=== PATIENT | male | born 2000 | race Caucasian/White ===

== ENCOUNTER 2021-04-29 23:22 | Emergency (ER) | payer OTHER ==
[2021-04-30] MEDS ORDERED: oxyCODONE/ACET 5/325 Prepack 4 PO STA (00:15)
--- NOTE | 2021-04-30 00:19 | ED Physician Documentation ---
PD HPI SKIN - Stated complaint Stated Complaint: PX/+SHINGLES - Chief complaint Chief Complaint: Wound - History obtained from History obtained from: Patient - History of Present Illness Timing - onset: How many days ago (2-3) Timing - details: Gradual onset Pain level now: 8 Location: Abdomen, Back Quality / character: Painful Similar symptoms before: Diagnosis (shingles) Recently seen: Clinic - Additional information Additional information: c/o pain associated with shingles. Rash started 2-3 days ago, rapidly became painful. Seen at [facility] earlier today, was prescribed valacyclovir, prednisone, NSAID, tramadol. He has not had adequate pain relief with these medications. Review of Systems Constitutional: denies: Fever Skin: reports: Rash PD PAST MEDICAL HISTORY - Past Medical History Past Medical History: No Neuro: None Derm: Other Other Past Medical History: Hx of childhood chicken pox - Past Surgical History Past Surgical History: Yes HEENT: Other - Present Medications Home Medications: Ambulatory Orders Medication Instructions Recorded Confirmed Oxycodone HCl/Acetaminophen 1 - 2 each PO Q6H PRN #14 tablet 04/30/21 [Percocet 5-325 mg Tablet] - Allergies Allergies/Adverse Reactions: Allergies Allergy/AdvReac Type Severity Reaction Status Date / Time No Known Drug Allergies Allergy Verified 04/29/21 23:42 - Social History Does the pt smoke?: No Smoking Status: Never smoker Does the pt have substance abuse?: No - Immunizations Immunizations are current?: Yes - POLST Patient has POLST: No PD ED PE NORMAL - Vitals Vital signs reviewed: Yes - General General: Alert and oriented X 3, No acute distress, Well developed/nourished PD ED PE EXPANDED - Derm Derm: Rash (raised papulovasicular erythematous exanthem along dermatomal distribution right mid/lower back around right flank to RUQ. does not cross midline) Results - Vitals Vitals: Oxygen O2 Source Room air PD MEDICAL DECISION MAKING - ED course Complexity details: considered differential, d/w patient ED course: Painful rash, exam reveals classic exanthem of shingles. No evidence of bacterial infection (such as cellulitis). Inadequate control of pain with tramadol, aleve. Will rx percocet I am prescribing a short course of short-acting opioid pain medication for this patient. I have reviewed the patients [employer] and no concerning findings were noted. I have discussed that the opioids are for short term therapy only, and will not be refilled from the ED Departure - Departure Disposition: 01 Home, Self Care Clinical Impression: Acute pain associated with herpes zoster Condition: Good Instructions: ED Shingles Prescriptions: Oxycodone HCl/Acetaminophen [Percocet 5-325 mg Tablet] 1 - 2 each PO Q6H PRN #14 tablet PRN Reason: pain Comments: It is not uncommon for the pain of shingles to be beyond the control of [id number] and/or prescription medications such as the tramadol you had been prescribed. You will likely get better pain relief with the percocet, but realize this also is more likely to have noticeable side effects such as drowsiness, nausea, constipation. You should take all of the other medications as prescribed by DEBB[facility] EXCEPT for the tramadol. You should take the tramadol OR the oxycodone/acetaminophen but not both. You can take a dose of either one as long as they are taken 6 hours apart from each other. A prescription for percocet has been electronically submitted to the [facility] pharmacy in [place]. I am prescribing a short course of narcotic pain medication for you. These are potentially dangerous and addictive medications that should be used carefully. These medications may constipate you. Take an qzkw-rqp-llhibpt stool softener (docusate) twice daily with plenty of water while taking these medications. If you go 24 hours without a bowel movement, take [id number] miralax, per package instructions. Do not drink or drive while taking these medications. If you received narcotic or sedating medications while in the emergency department, do not drive for 24 hours. Store this medication in a safe, secure place and out of reach of children. It is a violation of federal law to give or sell this medication to another person or to use in a manner other than prescribed. The ED will not refill narcotic prescriptions, including prescriptions lost or stolen. To dispose of unwanted medications: 1. [facility] at [address] in [place] has a medication drop box. They accept prescription medications (in pill form) Sunday through Sunday 9:00 a.m. to 5:00 p.m. 2. [facility] [employer] [facility] accepts prescription medications (in pill form only) for disposal year round. Call for more information. 3. Contact the [facility] for the next [facility] sponsored prescription drug collection event. , [phone], or [phone]; Discharge Date/Time: 04/30/21 00:42
[2021-04-30 00:44] VITALS: BP 144/82
== END 2021-04-30 00:42 | disposition home or self-care (01) ==
LOC: ED 23:22
DX: B02.8 Zoster with other complications (principal)
CPT/HCPCS: 99282; 99283